=== PATIENT | female | born 1965 | race Hispanic/Latino ===

== ENCOUNTER 2018-09-30 15:57 | Inpatient (IN) | payer SELFPAY ==
[~2018-09-30] VITALS: Ht 154.9 cm; Wt 74.4 kg
[2018-09-30] MEDS ORDERED: ONDANSETRON HCL 4 MG/2 ML VIAL ONE ×2 (16:26→21:20)
[2018-09-30] MEDS ORDERED: NITROGLYCERIN 1GM/1 INCH PACKET TD ONE (16:26)
[2018-09-30] MEDS ORDERED: ASPIRIN 325 MG TABLET ONE (16:26)
[2018-09-30 17:19] LABS: BASOPHILS % (AUTO) 0.2 % (0.0-5.0); EOSINOPHILS % (AUTO) 1.4 % (0.0-8.0); HEMATOCRIT 42.3 % (36-48); LYMPHOCYTES % (AUTO) 13.8 % (21.0-51.0); MEAN CORPUSCULAR HEMOGLOBIN 27.6 pg (27.0-33.0); MEAN CORPUSCULAR VOLUME 83.8 fL (79-99); MONOCYTES % (AUTO) 4.8 % (3.0-13.0); NEUTROPHILS % (AUTO) 79.8 % (40.0-77.0); PLATELET COUNT (AUTO) 234 K/uL (130-400); RED BLOOD CELL COUNT(AUTO) 5.05 MIL/uL (4.00-5.50); RED CELL DISTRIBUTION WIDTH 13.5 % (11.0-15.5); WHITE BLOOD COUNT (AUTO) 9.6 K/uL (4.8-10.8)
[2018-09-30 17:34] LABS: CREATININE 0.7 mg/dL (0.5-1.5); POTASSIUM 3.4 mmol/L (3.5-5.1)
[2018-09-30] MEDS ORDERED: IOHEXOL-350 75 ML VIAL IV ONE (19:18)
[2018-09-30] MEDS ORDERED: ACETAMINOPHEN EXTRA STRENGTH 500 MG TABLET ONE (20:23)
[2018-09-30 22:30] VITALS: BP 121/74
[2018-09-30] MEDS: NITROGLYCERIN 1GM/1 INCH PACKET TD SCH (22:45)
[2018-09-30] MEDS ORDERED: MORPHINE SULFATE 4 MG/1ML SYG IV PRN (22:45)
[2018-09-30] MEDS ORDERED: ONDANSETRON HCL 4 MG/2 ML VIAL IV PRN (22:45)
[2018-09-30] MEDS ORDERED: ACETAMINOPHEN 325 MG TAB PO PRN ×2 (22:45)
[2018-09-30] MEDS ORDERED: HYDRALAZINE HCL 20 MG/ML VIAL IV PRN (22:45)
[2018-09-30] MEDS ORDERED: MORPHINE SULFATE 2 MG/ML 1ML SYG IV PRN (22:45)
[2018-09-30] MEDS ORDERED: LORAZEPAM 2 MG/ML 1 ML VIAL IVP PRN (22:45)
[2018-10-01 00:07] LABS: CREATINE KINASE, TOTAL 120 U/L (21-232); MYOGLOBIN 49 ng/mL (10-92); TROPONIN I < 0.04 ng/mL (0.00-0.06)
[2018-10-01 03:17] LABS: CREATINE KINASE, TOTAL 109 U/L (21-232); MYOGLOBIN 38 ng/mL (10-92); TROPONIN I < 0.04 ng/mL (0.00-0.06)
[2018-10-01 04:15] VITALS: BP 102/66
[2018-10-01] MEDS: NITROGLYCERIN 1GM/1 INCH PACKET TD SCH (05:51)
[2018-10-01 06:52] LABS: CREATINE KINASE, TOTAL 113 U/L (21-232); MYOGLOBIN 36 ng/mL (10-92); TROPONIN I < 0.04 ng/mL (0.00-0.06)
[2018-10-01 08:05] VITALS: BP 117/62
[2018-10-01 08:57] LABS: APPEARANCE,URINE Clear (CLEAR); BILIRUBIN,URINE Negative (NEGATIVE); COLOR,URINE Dark Yellow (YELLOW); GLUCOSE, URINE (UA) Negative (NEGATIVE); KETONES,URINE Negative (NEGATIVE); LEUKOCYTE ESTERASE ,URINE Moderate (NEGATIVE); NITRATE,URINE Negative (NEGATIVE); OCCULT BLOOD,URINE Moderate (NEGATIVE); PH,URINE 6.5 (5.0-8.0); PROTEIN,URINE Negative (NEGATIVE)
[2018-10-01] MEDS ORDERED: SULF1TAB42 PO (08:58)
[2018-10-01 09:00] LABS: BACTERIA,URINE Rare /HPF (None Seen); SQUAMOUS EPITHELIAL CELL,UR Rare /HPF (0-2); WBC,URINE 0-1 /HPF (0-1)
[2018-10-01] MEDS ORDERED: ENOXAPARIN SODIUM 30 MG/0.3 ML SQ SCH (09:00)
[2018-10-01] MEDS ORDERED: ASPIRIN 325 MG TABLET PO SCH (09:00)
[2018-10-01] MEDS ORDERED: METOPROLOL TARTRATE 25 MG TAB PO SCH (09:00)
[2018-10-01] MEDS ORDERED: FAMOTIDINE/PF 20 MG/2 ML VIAL IV SCH (09:00)
--- NOTE | 2018-10-01 10:30 | NUR ---
Instructions Discharge instructions given to patient and family using teach back. No questions or concerns voiced. F/U appointment will be made by patient once she chooses an MD from the list provided. IV has been removed with tip intact. Direct pressure applied until bleeding controlled, then site covered with gauze and secured with a band-aid. Pending ride home.
--- NOTE | 2018-10-01 13:56 | NUR ---
DC PLAN PATIENT DISCHARGED ALREADY GONE NO NEEDS VERBALIZED BY NURSING STAFF. Addendum: 10/01/18 at 1357 by YAKELIN LOPEZ RN CM Amended: Links added.
== END 2018-10-01 10:46 | disposition home or self-care (01) | DRG 313 ==
LOC: EEVIPCON 15:57 → EDH 15:57 → EDHIP 15:58 → 4BH 22:30
PROVIDERS: ADMIT Internal Medicine; ATTEND Internal Medicine
DX: R07.89 Other chest pain (principal); R30.0 Dysuria; Z83.3 Family history of diabetes mellitus; Z82.49 Family history of ischemic heart disease and other diseases of the circulatory system
CPT/HCPCS: 36415; 71046; 71275; 80048; 81001; 82550; 83874; 84484; 85025; 85378; 87804; 93005; 99291; G0378; J1650; J2405; J3490; Q9967